=== PATIENT | male | born 2000 | race Caucasian/White ===

== ENCOUNTER 2019-09-19 17:54 | Emergency (ER) | payer OTHER, BC, SELFPAY ==
[2019-09-19 17:56] VITALS: BP 141/77; PULSE 98; RESP 15; TEMP 37; O2SAT 96; BMI 39.9
--- NOTE | 2019-09-19 19:35 | ED.VIS.UPPEX ---
History of Present Illness Chief Complaint: Laceration Informant: Patient Occurred: Today - DARIEN Mechanism/Context: Incised Onset: Today Context: Sudden Onset - accidentally on piece of metal Location: R hand Current Severity: Mild Maximum Severity: Moderate Worsened by: Palpation Relieved by: Leaving it alone Associated Symptoms: Negative for: Parasthesia, Weakness, Loss of Funtion Narrative: While at work, accidentally cut hand while pushing a box onto a truck, on a piece of metal on another machine. Tetanus Immunization: 5-10 years Past Medical History - Allergies and Home Meds Allergies/Adverse Reactions: Allergies No Known Allergies Allergy (Verified 09/19/19 17:55) Primary Care Physician: NOT,DEFINED [NON-STAFF] - Smoking Status: Former smoker Physical Exam Vital Signs/Narrative: Vital Signs Temp Pulse Resp BP Pulse Ox 09/19/19 17:56 98.6 F 98 15 141/77 H 96 General: Well nourished, Well developed, - - n ad Head: Normocephalic, Atraumatic Extremeties: Full range of motion of all right fingers, all tendon function intact Skin: Normal color, No rash, Trauma - 2.5 cm curved partial-thickness laceration and a flap-shape on the dorsum of the right hand, just proximal to the MCP J of the index finger. Neurological: Alert, Oriented x3, Cranial nerves II-XII grossly intact, Normal Strength, Normal Sensation, Normal Gait Psychological: Normal affect, Normal Mood Diagnostic/Tx/Re-eval - Medical Decision Making Laceration was cleansed, repaired, only restrictions are coverage with a glove/dressing, which was included in discharge papers. All questions answered. Follow-up in 7-10 days for suture removal. Procedures - Lacerations R hand Length: 2.5 cm Depth: Sub Q Shape: Flap Prep: Sterile Conditions, Chlorhexadine - scrubbed Laceration repair: Lidocaine, Local - 2cc, plus LET topically, Wound explored - no tendon visible Number of Sutures/[employer]: 5 Suture Information: Ethilon, Simple, 5-0 ED Disposition - Plan for ED Patient: Disposition: Home or Assisted Living Diagnosis: Laceration of right hand, Tetanus-diphtheria (Td) vaccination Instructions: LACERATION, Hand Referrals: [facility] [GROUP OF PHYSICIANS] - 10 Day for suture removal (Call for appointment, 7-10 days for suture removal)
[2019-09-19] MEDS: Diphth,Pertuss(Acell),Tet Vac 0.5 ML Vial IM (20:24)
[2019-09-19] MEDS: Lidocaine/Epi/Tetracaine 50 ML 1 APPLIC TOPICAL (20:24)
[2019-09-19 21:33] VITALS: BP 136/64; PULSE 89; RESP 18; O2SAT 97
== END 2019-09-19 21:33 | disposition home or self-care (01) ==
PROVIDERS: Emergency Provider Emergency Medicine
DX: S61.411A Laceration without foreign body of right hand, initial encounter (principal); Z23 Encounter for immunization; Z87.891 Personal history of nicotine dependence; W26.8XXA Contact with other sharp object(s), not elsewhere classified, initial encounter; Y93.89 Activity, other specified; Y92.89 Other specified places as the place of occurrence of the external cause; Y99.0 Civilian activity done for income or pay
CPT/HCPCS: 12001; 90471; 90715; 99284

== ENCOUNTER 2024-08-22 23:56 | Emergency (ER) | payer OTHER, SELFPAY ==
[2024-08-22 23:57] VITALS: BP 159/96; PULSE 76; RESP 16; TEMP 36.8; O2SAT 98; BMI 16.6
[2024-08-23] MEDS: Tetracaine 0.5% Ophthalmic Bottle 1 DRP OPHTHALMIC (00:45)
[2024-08-23] MEDS: Fluorescein 1 MG STRIP 1 STRIP OPHTHALMIC (00:46)
[2024-08-23 01:09] VITALS: RESP 16
--- NOTE | 2024-08-23 01:29 | EX.ED.VIS.EY ---
HPI History of Present Illness Chief Complaint: Eye Problem Informant: patient and spouse/S.O. Associated Symptoms Visual correction: None Narrative Narrative: Grinding metal couple days ago foreign body sensation left eye. Had a hat and safety goggles. No history of similar. Does not wear glasses or contacts. Increasing photophobia erythema to the eye. Unable to sleep. Prior similar symptoms: No PFSH PFSH Medical History Hx of laceration of skin Home Medications ?Medication ?Instructions ?Recorded ?Last Taken ?Type meclizine 25 mg tablet 25 mg PO TID 08/23/24 Unknown History (Travel-Ease (meclizine)) Allergy/AdvReac Type Severity Reaction Status Date / Time No Known Allergies Allergy Verified 08/22/24 23:57 Social History Smoking Status: Former smoker Smokeless tobacco user: other alcohol intake: current alcohol intake frequency: holidays/special occasions only Alcohol type: hard liquor ROS ROS ED Constitutional Constitutional ED: Denies chills, fever(s) or sweats Eyes Eyes: Reports other Details: Photophobia, foreign body sensation Cardiovascular Cardiovascular: Denies chest pain Respiratory/Chest Respiratory/Chest: Denies cough Gastrointestinal Gastrointestinal: Denies abdominal pain, diarrhea, nausea or vomiting Musculoskeletal Musculoskeletal: Denies back pain, extremity pain or neck pain Integumentary Denies rash or wounds Neurologic Neurologic: Denies headache(s), paresthesias or weakness EXAM Physical Exam Const Vital Signs: 08/22/24 23:57 08/23/24 01:09 Temperature 98.2 F Temperature Source Oral Pulse Rate 76 Respiratory Rate 16 16 Blood Pressure 159/96 H Blood Pressure Mean 117 Pulse Ox 98 Oxygen Delivery Method Room Air Oxygen Flow Rate (L/min) 1 Positive well nourished and well developed General Appearance ED: well developed and NAD HEENT Reports moist mucous membranes normocephalic and atraumatic Eyes Eyes Narrative: Visual acuity 20/25 OD, 20/25 OS. Left eye: Erythematous sclera medially. There was round foreign body 6 o'clock position with rust ring around it. Negative Rufina sign. After removal of foreign body, no abrasions there is uptake around the rust ring. Neck full ROM Chest Wall Chest: Negative for tenderness Resp normal respiratory effort and normal air movement Effort and Inspection: symmetric chest movement; Negative for respiratory distress Cardio regular rate, regular rhythm and no murmurs Peripheral Pulses: pulses 2+ throughout GI normal to inspection, nondistended, normoactive bowel sounds and non-tender Palpation: Negative for guarding or rebound tenderness present Extremity normal to inspection General Extremety ED: Negative for edema or tenderness General Extremity: Negative for edema Neuro oriented x3 and no sensory deficits noted Sensorium / Orientation: awake and alert Skin no rashes or lesions noted and no wounds MDM MDM MDM Narrative Medical decision making narrative: Interventions / MDM: Differential diagnosis: Foreign body left cornea with rust ring Diagnosis considered but do not suspect: N/A My EKG interpretation: N/A Imaging independently reviewed and interpreted by myself: N/A External documents reviewed: N/A Test considered but not ordered:N/A ED course: Patient foreign body noted cornea. Slit-lamp examination, foreign body removed with syringe and needle. Residual rust ring. Antibiotic ointment. Visual acuity normal and intact. Ophthalmology follow-up given for further outpatient care of rust ring. Procedure note: Verbal consent. Slit-lamp used. Magnification foreign body noted, syringe with 23-gauge and 1/2 inch needle, gentle manipulation and removal of foreign body with improved sensation. Residual rust ring was noted. Patient tolerated the procedure well. Re-evaluation: stable Disposition discussed with patient/family/significant other: Patient and significant other Case discussed with consulting clinician: N/A This note was generated with [employer] dictation software. It may contain incorrect words, spelling, and punctuation that were not noted in checking the note before signing. Discharge Plan Triage Chief Complaint: Eye Problem ED Provider: Delfin Wesley Dx/Rx/DC Orders Clinical Impression: Foreign body of cornea, left, Photophobia of left eye Instructions: ED RUST RING Prescriptions: No Action meclizine [Travel-Ease (meclizine)] 25 mg tablet 25 mg PO TID Stand Alone Forms: ED Work / School Excuse Primary Care Provider: Care Physician,No Primary Referrals: Vinayak Kitchen MD [Med Staff - Active Staff] - 1 Day Care Physician,No Primary [Primary Care Provider] - Activity Restrictions/Additional Instructions: Foreign body left cornea removed with residual rust ring. Use antibiotic ointment 3 times a day. Call ophthalmology office for close follow-up and removal of the rust ring. Print Language: Hebrew Disposition Disposition: Home, Self Care
[2024-08-23] MEDS: Erythromycin Base 1 OPTH.TUBE 1 APPLIC LEFT EYE (01:50)
[2024-08-23 01:52] VITALS: BP 129/79; PULSE 68; RESP 16; TEMP 36.6; O2SAT 99
== END 2024-08-23 01:52 | disposition home or self-care (01) ==
PROVIDERS: Emergency Provider Emergency Medicine; Visit Provider Emergency Medicine
DX: T15.02XA Foreign body in cornea, left eye, initial encounter (principal); H53.142 Visual discomfort, left eye; Z87.891 Personal history of nicotine dependence; W44.D0XA Magnetic metal object unspecified, entering into or through a natural orifice, initial encounter
CPT/HCPCS: 99283